=== PATIENT | female | born 1975 | race Caucasian/White ===

== ENCOUNTER 2019-05-07 08:51 | Emergency (ER) | payer SELFPAY ==
[~2019-05-07] VITALS: Ht 160 cm; Wt 46.6 kg
[2019-05-07 08:57] VITALS: BP 106/74
--- NOTE | 2019-05-07 09:55 | NUR ---
PT PROVIDED WITH WARM BLANKETS PER REQUEST. DENIES ANY FURTHER NEEDS OR CONCERNS AT THIS TIME. CALL LIGHT IN REACH.
--- NOTE | 2019-05-07 10:35 | NUR ---
Note jose in EDM - 05/07/19 at 1036 by [email or web address] UPON [facility] ARRIVAL PT WAS FOUND TO HAVE BP OF 60/40. GIVEN 700ML NS EN ROUTE, BP UP TO 82/57. STATES THAT SHE WAS WALKING HER DOG WHEN SHE SUDDENLY FELT DIZZY AND FAINT AND JUST "COULDN'T GO ANY MORE". CHANGED NTO GOWN, ATTACHED TO ALL MONITORS. PROVIDED WITH WARM BLANKETS. PT DENIES ANY FURTHER NEEDS OR CONCERNS AT THIS TIME, CALL LIGHT IN REACH, CHART UP FOR ERP REVIEW.
== END 2019-05-07 11:22 | disposition home or self-care (01) ==
LOC: ED 11:00
DX: M25.561 Pain in right knee (principal); I50.9 Heart failure, unspecified
CPT/HCPCS: 29505; 99283

== ENCOUNTER 2019-05-09 08:48 | Emergency (ER) | payer SELFPAY ==
[~2019-05-09] VITALS: Ht 160 cm; Wt 48.0 kg
[2019-05-09] MEDS ORDERED: ALBUTEROL/IPRATROPIUM 2.5MG/0.5MG, 3 ML ONE (09:24)
[2019-05-09] MEDS ORDERED: ALBUTEROL/IPRATROPIUM 2.5MG/0.5MG, 3 ML NEB ONE (09:30)
[2019-05-09 09:32] LABS: BASOPHILS # (AUTO) 0.01 x10^3/uL (0-0.1); BASOPHILS % (AUTO) 0 % (0-1); EOSINOPHILS # (AUTO) 0.07 x10^3/uL (0-0.4); EOSINOPHILS % (AUTO) 1 % (1-7); LYMPHOCYTES # (AUTO) 0.47 x10^3/uL (1-3.4); LYMPHOCYTES % (AUTO) 9 % (22-44); MD NO; MEAN CORPUSCULAR HEMOGLOBIN 29.9 pg (27.0-34.8); MEAN CORPUSCULAR HGB CONC 32.6 g/dL (32.4-35.8); MEAN CORPUSCULAR VOLUME 91.6 fL (80-100); MEAN PLATELET VOLUME 7.8 fL (7.4-10.4); MONOCYTES # (AUTO) 0.42 x10^3/uL (0.2-0.8); MONOCYTES % (AUTO) 8 % (2-9); NEUTROPHILS # (AUTO) 4.51 x10^3/uL (1.8-6.8); NEUTROPHILS % (AUTO) 82 % (42-75); PLATELET COUNT 198 x10^3/uL (130-400); RED BLOOD COUNT 3.89 x10^6/uL (3.82-5.3); RED CELL DISTRIBUTION WIDTH 14.8 % (9.6-15.2)
[2019-05-09 09:42] LABS: ALANINE AMINOTRANSFERASE 25 U/L (12-78); ALBUMIN 2.6 g/dL (3.4-5.0); ANION GAP 5 mmol/L (5-15); CALCIUM 7.7 mg/dL (8.5-10.1); CHLORIDE 111 mmol/L (98-107); CREATININE 0.53 mg/dL (0.55-1.02)
[2019-05-09 09:44] LABS: ALKALINE PHOSPHATASE 90 U/L (45-117); BILIRUBIN,TOTAL 0.4 mg/dL (0.2-1.0)
--- NOTE | 2019-05-09 09:53 | NUR ---
report from EFREN Barros, to assume care of pt.
[2019-05-09 09:57] VITALS: BP 101/62
--- NOTE | 2019-05-09 09:58 | NUR ---
PT RESTING IN ROOM WITH FAMILY AT BS. VSS. RT TX COMPLETE. NO NEEDS AT THIS TIME. PO MEDS TO BE ADMINISTERED BY TASK RN. ALL RESULTS BACK AT THIS TIME. CHART UP FOR RECHECK.
--- NOTE | 2019-05-09 10:28 | NUR ---
TECH TO BS TO COMPLETE AMB SPO2.
--- NOTE | 2019-05-09 10:34 | NUR ---
SPO2 DOWN TO 88% WITH AMBULATION. WILL NOTIFY EDMD.
[2019-05-16] MEDS ORDERED: ALBU18HF IH (00:48)
== END 2019-05-09 10:57 | disposition home or self-care (01) ==
LOC: ED 08:57
DX: J43.9 Emphysema, unspecified (principal); I50.9 Heart failure, unspecified; Z90.710 Acquired absence of both cervix and uterus; Z87.891 Personal history of nicotine dependence; Z88.2 Allergy status to sulfonamides; Z88.8 Allergy status to other drugs, medicaments and biological substances
CPT/HCPCS: 36415; 71046; 80053; 83880; 85025; 93005; 99284; J7512; J7620

== ENCOUNTER 2019-05-15 03:38 | Emergency (ER) | payer SELFPAY ==
[~2019-05-15] VITALS: Ht 160 cm; Wt 46.4 kg
[2019-05-15 03:48] VITALS: BP 130/82
[2019-05-15] MEDS ORDERED: ACETAMINOPHEN 500 MG TABLET ONE (04:10)
[2019-05-15] MEDS ORDERED: DEXAMETHASONE 4 MG TABLET ONE (04:10)
[2019-05-15] MEDS ORDERED: ACETAMINOPHEN 500 MG TABLET PO ONE (04:30)
[2019-05-15] MEDS ORDERED: DEXAMETHASONE 4 MG TABLET PO ONE (04:30)
[2019-05-15] MEDS ORDERED: SPIR100T4 PO (22:04)
[2019-05-15] MEDS ORDERED: SERVENT INH (22:04)
[2019-05-15] MEDS ORDERED: MONT10TA6 PO (22:04)
[2019-05-16] MEDS ORDERED: ALBU18HF IH (00:48)
== END 2019-05-15 05:42 | disposition home or self-care (01) ==
LOC: ED 05:30
DX: J04.0 Acute laryngitis (principal); J44.1 Chronic obstructive pulmonary disease with (acute) exacerbation; I50.9 Heart failure, unspecified; Z87.891 Personal history of nicotine dependence; Z90.710 Acquired absence of both cervix and uterus
CPT/HCPCS: 71045; 99283

== ENCOUNTER 2019-06-12 12:18 | Inpatient (IN) | payer MEDICARE ==
[~2019-06-12] VITALS: Ht 160 cm; Wt 41.4 kg
[~2019-06-12 12:18] MED LIST: ALBU18HF IH; MONT10TA6 PO; SERVENT INH; SPIR100T4 PO
[2019-06-12 20:00] VITALS: BP 103/71
[2019-06-12] MEDS ORDERED: FLUC100T4 JT (20:04)
[2019-06-12] MEDS ORDERED: BENZ2AMP4 JT (20:04)
[2019-06-12] MEDS ORDERED: DOCU-131 JT (20:04)
[2019-06-12] MEDS ORDERED: ASCO500T7 PO (20:04)
[2019-06-12] MEDS ORDERED: CHOL200078 JT (20:04)
[2019-06-12] MEDS ORDERED: ACET100V3 IH (20:04)
[2019-06-12] MEDS ORDERED: BUPR75TA6 PO (20:04)
[2019-06-12] MEDS ORDERED: CYAN500L4 JT (20:04)
[2019-06-12] MEDS ORDERED: MIRT15TA3 JT (20:04)
[2019-06-12] MEDS ORDERED: PRED5TAB JT (20:04)
[2019-06-12] MEDS ORDERED: CALC-112 PO (20:04)
[2019-06-12] MEDS ORDERED: ACET500T76 JT (20:04)
[2019-06-12] MEDS ORDERED: LANS30TA6 JT (20:04)
[2019-06-12] MEDS ORDERED: PLEASE ENTER HEIGHT AND WEIGHT MC SCH (20:30)
[2019-06-12] MEDS: ACETYLCYSTEINE 10%,30ML INH SCH (20:30)
[2019-06-12] MEDS ORDERED: BISACODYL 10 MG SUPP PR PRN (20:30)
[2019-06-12] MEDS ORDERED: DOCUSATE 100 MG CAPSULE JT PRN (20:30)
[2019-06-12] MEDS ORDERED: ACETAMINOPHEN 500 MG TABLET JT SCH (20:30)
[2019-06-12] MEDS ORDERED: CALCIUM/VITAMIN D3 250-125 TABLET PO SCH (21:00)
[2019-06-12] MEDS: AMPICILLIN/SULBACTAM 3 GM in SODIUM CHLORIDE 0.9% 100 ML IV SCH (21:33)
[2019-06-12] MEDS: ALBUTEROL/IPRATROPIUM 2.5MG/0.5MG, 3 ML NPPB SCH (22:30)
[2019-06-12] MEDS ORDERED: morphine SULFATE/PF 0.5 MG/ML, 10ML IV PRN (23:00)
[2019-06-12] MEDS ORDERED: morphine SULFATE 10 MG/ML, 1ML IVPush PRN (23:30)
[2019-06-12] MEDS ORDERED: OLAN10TA3 JT (23:42)
[2019-06-12] MEDS ORDERED: ASPI81TA45 JT (23:42)
[2019-06-12] MEDS: MIRTAZAPINE 15 MG TAB.RAPDIS JT SCH (23:44)
[2019-06-13] MEDS ORDERED: ALBU18HF INH (00:15)
[2019-06-13] MEDS ORDERED: SPIR100T4 PO (00:15)
[2019-06-13] MEDS ORDERED: MONT10TA6 PO (00:15)
[2019-06-13] MEDS ORDERED: AMPI3VIA30 IV (00:15)
[2019-06-13] MEDS ORDERED: ESTR1PAT25 TD (00:15)
[2019-06-13] MEDS ORDERED: FLUT1DIS5 IH (00:15)
[2019-06-13] MEDS ORDERED: SERT100T32 PO (00:15)
[2019-06-13] MEDS: ACETYLCYSTEINE 10%,30ML INH SCH (02:30)
[2019-06-13] MEDS: ALBUTEROL/IPRATROPIUM 2.5MG/0.5MG, 3 ML NPPB SCH ×4 (03:00→21:07)
[2019-06-13 03:07] VITALS: BP 87/62
[2019-06-13] MEDS: AMPICILLIN/SULBACTAM 3 GM in SODIUM CHLORIDE 0.9% 100 ML IV SCH ×4 (03:28→22:06)
[2019-06-13] MEDS: ACETAMINOPHEN 650 MG/20.3 ML UDC JT SCH ×3 (05:59→16:57)
[2019-06-13 06:19] LABS: BASOPHILS # (AUTO) 0.01 x10^3/uL (0-0.1); BASOPHILS % (AUTO) 0 % (0-1); EOSINOPHILS # (AUTO) 0.06 x10^3/uL (0-0.4); EOSINOPHILS % (AUTO) 1 % (1-7); LYMPHOCYTES % (AUTO) 26 % (22-44); MD NO; MEAN CORPUSCULAR HEMOGLOBIN 30.6 pg (27.0-34.8); MEAN CORPUSCULAR HGB CONC 32.8 g/dL (32.4-35.8); MEAN CORPUSCULAR VOLUME 93.4 fL (80-100); MEAN PLATELET VOLUME 6.3 fL (7.4-10.4); MONOCYTES # (AUTO) 0.28 x10^3/uL (0.2-0.8); MONOCYTES % (AUTO) 6 % (2-9); NEUTROPHILS # (AUTO) 2.98 x10^3/uL (1.8-6.8); NEUTROPHILS % (AUTO) 66 % (42-75); PLATELET COUNT 421 x10^3/uL (130-400); RED BLOOD COUNT 3.05 x10^6/uL (3.82-5.3); RED CELL DISTRIBUTION WIDTH 16.3 % (9.6-15.2)
[2019-06-13 06:26] LABS: ALANINE AMINOTRANSFERASE 23 U/L (12-78); ALBUMIN 2.5 g/dL (3.4-5.0); ANION GAP 4 mmol/L (5-15); CALCIUM 8.2 mg/dL (8.5-10.1); CHLORIDE 97 mmol/L (98-107); CREATININE 0.49 mg/dL (0.55-1.02)
[2019-06-13 06:28] LABS: ALKALINE PHOSPHATASE 115 U/L (45-117); BILIRUBIN,TOTAL 0.4 mg/dL (0.2-1.0); TOTAL PROTEIN 5.3 g/dL (6.4-8.2)
[2019-06-13 07:07] VITALS: BP 92/65
[2019-06-13] MEDS ORDERED: FLUCONAZOLE 10 MG/ML ORAL SUSP JT SCH (09:00)
[2019-06-13] MEDS ORDERED: BENZTROPINE 1 MG/ML, 2 ML HOMEINJ SCH (09:00)
[2019-06-13] MEDS ORDERED: TEMPLATE NON-FORMULARY MED. (Lansoprazole** (Prevacid**) 30 MG) JT SCH (09:00)
[2019-06-13] MEDS: CHOLECALCIFEROL 1,000 UNIT TABLET JT SCH (09:00)
[2019-06-13] MEDS: CALCIUM/VITAMIN D3 250-125 TABLET JT SCH ×2 (09:00→22:06)
[2019-06-13] MEDS ORDERED: ASCORBIC ACID 500 MG TABLET PO SCH (09:00)
[2019-06-13] MEDS ORDERED: BUPROPION 75 MG TABLET PO SCH (09:00)
[2019-06-13] MEDS: BUPROPION 75 MG TABLET JT SCH (09:00)
[2019-06-13] MEDS: PANTOPRAZOLE 40 MG IV IVPush SCH (09:11)
[2019-06-13] MEDS: ASCORBIC ACID 500 MG TABLET JT SCH (09:11)
[2019-06-13] MEDS: FLUCONAZOLE 40 MG/ML ORAL SUSP JT SCH (09:12)
[2019-06-13] MEDS: CYANOCOBALAMIN 1,000 MCG TABLET JT SCH (09:12)
[2019-06-13] MEDS: ACETYLCYSTEINE 10%,30ML NPPB SCH ×3 (10:15→21:07)
[2019-06-13 13:29] VITALS: BP 123/84
[2019-06-13] MEDS ORDERED: SODIUM CHLORIDE 0.9% 1,000 ML IV SCH ×2 (14:30→17:30)
[2019-06-13] MEDS: SODIUM CHLORIDE 0.9% 1,000 ML IV SCH (17:34)
[2019-06-13 19:26] VITALS: BP 119/81
[2019-06-13] MEDS: OLANZAPINE 5 MG TABLET JT SCH (22:06)
[2019-06-13] MEDS: MIRTAZAPINE 15 MG TAB.RAPDIS JT SCH (22:06)
[2019-06-14] MEDS: ACETAMINOPHEN 650 MG/20.3 ML UDC JT SCH ×3 (00:10→12:10)
[2019-06-14] MEDS: ACETYLCYSTEINE 10%,30ML NPPB SCH ×4 (03:00→21:00)
[2019-06-14] MEDS: ALBUTEROL/IPRATROPIUM 2.5MG/0.5MG, 3 ML NPPB SCH ×4 (03:00→21:31)
[2019-06-14] MEDS: AMPICILLIN/SULBACTAM 3 GM in SODIUM CHLORIDE 0.9% 100 ML IV SCH ×4 (03:35→21:47)
[2019-06-14 03:39] VITALS: BP 97/66
[2019-06-14] MEDS: LORazepam 0.5MG TABLET JT PRN ×2 (05:02→17:53)
[2019-06-14 05:57] LABS: BASOPHILS # (AUTO) 0.02 x10^3/uL (0-0.1); BASOPHILS % (AUTO) 0 % (0-1); EOSINOPHILS # (AUTO) 0.08 x10^3/uL (0-0.4); EOSINOPHILS % (AUTO) 2 % (1-7); LYMPHOCYTES # (AUTO) 0.99 x10^3/uL (1-3.4); LYMPHOCYTES % (AUTO) 22 % (22-44); MD NO; MEAN CORPUSCULAR HEMOGLOBIN 30.9 pg (27.0-34.8); MEAN CORPUSCULAR HGB CONC 33.4 g/dL (32.4-35.8); MEAN CORPUSCULAR VOLUME 92.4 fL (80-100); MEAN PLATELET VOLUME 6.8 fL (7.4-10.4); MONOCYTES # (AUTO) 0.35 x10^3/uL (0.2-0.8); MONOCYTES % (AUTO) 8 % (2-9); NEUTROPHILS # (AUTO) 3.17 x10^3/uL (1.8-6.8); NEUTROPHILS % (AUTO) 69 % (42-75); PLATELET COUNT 396 x10^3/uL (130-400); RED CELL DISTRIBUTION WIDTH 16.2 % (9.6-15.2)
[2019-06-14 06:01] LABS: CHLORIDE 103 mmol/L (98-107)
[2019-06-14 06:07] LABS: ALANINE AMINOTRANSFERASE 24 U/L (12-78); ALBUMIN 2.5 g/dL (3.4-5.0); ALKALINE PHOSPHATASE 128 U/L (45-117); ANION GAP 5 mmol/L (5-15); BILIRUBIN,TOTAL 0.3 mg/dL (0.2-1.0); C-REACTIVE PROTEIN, QUANT 0.84 mg/dL (0.02-0.49); CALCIUM 7.8 mg/dL (8.5-10.1); CREATININE 0.51 mg/dL (0.55-1.02); TOTAL PROTEIN 5.4 g/dL (6.4-8.2)
[2019-06-14 06:58] VITALS: BP 118/79
[2019-06-14 07:20] LABS: HCT (SEDRATE) 28.7 % (34.6-47.8)
[2019-06-14] MEDS: BENZTROPINE 1 MG TABLET PO SCH ×2 (09:00→09:09)
[2019-06-14] MEDS: PANTOPRAZOLE 40 MG IV IVPush SCH (09:08)
[2019-06-14] MEDS: FLUCONAZOLE 40 MG/ML ORAL SUSP JT SCH (09:08)
[2019-06-14] MEDS: CHOLECALCIFEROL 1,000 UNIT TABLET JT SCH (09:09)
[2019-06-14] MEDS: BUPROPION 75 MG TABLET JT SCH (09:09)
[2019-06-14] MEDS: BENZTROPINE 1 MG TABLET JT SCH (09:09)
[2019-06-14] MEDS: CYANOCOBALAMIN 1,000 MCG TABLET JT SCH (09:10)
[2019-06-14] MEDS: CALCIUM/VITAMIN D3 250-125 TABLET JT SCH ×2 (09:10→20:14)
[2019-06-14] MEDS: ASCORBIC ACID 500 MG TABLET JT SCH (09:10)
--- NOTE | 2019-06-14 10:45 | NUR ---
TF GOAL: OSMOLITE 1.2 @ 55ML/HR
[2019-06-14] MEDS ORDERED: ACETAMINOPHEN 500 MG TABLET ONE (12:05)
[2019-06-14] MEDS: ACETAMINOPHEN 500 MG TABLET JT SCH ×2 (12:25→17:52)
[2019-06-14] MEDS: SODIUM CHLORIDE 0.9% 1,000 ML IV SCH (12:44)
[2019-06-14 13:26] VITALS: BP 121/82
[2019-06-14 15:07] VITALS: BP 121/80
[2019-06-14 19:27] VITALS: BP 113/70
[2019-06-14] MEDS: MIRTAZAPINE 15 MG TAB.RAPDIS JT SCH (20:13)
[2019-06-14] MEDS: OLANZAPINE 5 MG TABLET JT SCH (20:14)
[2019-06-15] MEDS: ACETAMINOPHEN 500 MG TABLET JT SCH ×5 (00:30→22:38)
[2019-06-15 00:49] VITALS: BP 116/74
[2019-06-15] MEDS: ACETYLCYSTEINE 10%,30ML NPPB SCH ×4 (02:19→21:00)
[2019-06-15] MEDS: ALBUTEROL/IPRATROPIUM 2.5MG/0.5MG, 3 ML NPPB SCH ×4 (02:19→21:00)
[2019-06-15] MEDS: AMPICILLIN/SULBACTAM 3 GM in SODIUM CHLORIDE 0.9% 100 ML IV SCH ×4 (03:55→22:37)
[2019-06-15] MEDS: LORazepam 0.5MG TABLET JT PRN (06:06)
[2019-06-15 06:11] VITALS: BP 96/66
[2019-06-15] MEDS: CYANOCOBALAMIN 1,000 MCG TABLET JT SCH (09:00)
[2019-06-15] MEDS: PANTOPRAZOLE 40 MG IV IVPush SCH (10:19)
[2019-06-15] MEDS: FLUCONAZOLE 40 MG/ML ORAL SUSP JT SCH (10:19)
[2019-06-15] MEDS: CHOLECALCIFEROL 1,000 UNIT TABLET JT SCH (10:20)
[2019-06-15] MEDS: ASCORBIC ACID 500 MG TABLET JT SCH (10:20)
[2019-06-15] MEDS: BENZTROPINE 1 MG TABLET JT SCH (10:21)
[2019-06-15] MEDS: CALCIUM/VITAMIN D3 250-125 TABLET JT SCH ×2 (10:23→22:38)
[2019-06-15] MEDS: BUPROPION 75 MG TABLET JT SCH (10:24)
[2019-06-15] MEDS: ONDANSETRON 2MG/ML, 2ML IVPush PRN ×2 (12:56→23:00)
[2019-06-15 13:19] VITALS: BP 119/85
[2019-06-15] MEDS: SODIUM CHLORIDE 0.9% 1,000 ML IV SCH (16:00)
[2019-06-15 18:23] VITALS: BP 113/77
[2019-06-15] MEDS: OLANZAPINE 5 MG TABLET JT SCH (22:38)
[2019-06-16 00:59] VITALS: BP 109/75
[2019-06-16] MEDS: ALBUTEROL/IPRATROPIUM 2.5MG/0.5MG, 3 ML NPPB SCH ×4 (03:00→19:53)
[2019-06-16] MEDS: AMPICILLIN/SULBACTAM 3 GM in SODIUM CHLORIDE 0.9% 100 ML IV SCH ×4 (04:26→21:30)
[2019-06-16] MEDS: ACETAMINOPHEN 500 MG TABLET JT SCH ×4 (04:26→21:31)
[2019-06-16 07:01] VITALS: BP 110/75
[2019-06-16] MEDS ORDERED: POTASSIUM CHLORIDE 20 MEQ PACKET PO ONE (08:30)
[2019-06-16] MEDS: CYANOCOBALAMIN 1,000 MCG TABLET JT SCH (09:00)
[2019-06-16] MEDS: FLUCONAZOLE 40 MG/ML ORAL SUSP JT SCH (09:00)
[2019-06-16] MEDS: FUROSEMIDE 10 MG/ML ORAL SOL PO SCH (09:00)
[2019-06-16] MEDS ORDERED: FUROSEMIDE 20 MG TABLET ONE (09:51)
[2019-06-16] MEDS ORDERED: FLUCONAZOLE 200 MG TABLET ONE (09:59)
[2019-06-16] MEDS: PANTOPRAZOLE 40 MG IV IVPush SCH (10:22)
[2019-06-16] MEDS: CHOLECALCIFEROL 1,000 UNIT TABLET JT SCH (10:23)
[2019-06-16] MEDS: BENZTROPINE 1 MG TABLET JT SCH (10:24)
[2019-06-16] MEDS: OLANZAPINE 5 MG TABLET JT SCH ×2 (10:25→21:30)
[2019-06-16] MEDS: CALCIUM/VITAMIN D3 250-125 TABLET JT SCH ×2 (10:26→21:31)
[2019-06-16] MEDS: ASCORBIC ACID 500 MG TABLET JT SCH (10:27)
[2019-06-16 12:49] VITALS: BP 114/81
[2019-06-16 21:10] VITALS: BP 102/68
[2019-06-17 00:57] VITALS: BP 96/67
[2019-06-17] MEDS: ALBUTEROL/IPRATROPIUM 2.5MG/0.5MG, 3 ML NPPB SCH ×3 (03:00→15:00)
[2019-06-17] MEDS: ACETAMINOPHEN 500 MG TABLET JT SCH ×4 (03:56→20:25)
[2019-06-17] MEDS: AMPICILLIN/SULBACTAM 3 GM in SODIUM CHLORIDE 0.9% 100 ML IV SCH ×3 (03:57→16:13)
[2019-06-17 06:10] LABS: BASOPHILS # (AUTO) 0.02 x10^3/uL (0-0.1); BASOPHILS % (AUTO) 0 % (0-1); EOSINOPHILS # (AUTO) 0.05 x10^3/uL (0-0.4); EOSINOPHILS % (AUTO) 1 % (1-7); LYMPHOCYTES # (AUTO) 1.13 x10^3/uL (1-3.4); LYMPHOCYTES % (AUTO) 23 % (22-44); MD NO; MEAN CORPUSCULAR HEMOGLOBIN 30.5 pg (27.0-34.8); MEAN CORPUSCULAR HGB CONC 32.8 g/dL (32.4-35.8); MEAN PLATELET VOLUME 6.8 fL (7.4-10.4); MONOCYTES # (AUTO) 0.45 x10^3/uL (0.2-0.8); MONOCYTES % (AUTO) 9 % (2-9); NEUTROPHILS # (AUTO) 3.24 x10^3/uL (1.8-6.8); NEUTROPHILS % (AUTO) 67 % (42-75); PLATELET COUNT 365 x10^3/uL (130-400); RED BLOOD COUNT 3.21 x10^6/uL (3.82-5.3); RED CELL DISTRIBUTION WIDTH 16.1 % (9.6-15.2)
[2019-06-17 06:21] LABS: ANION GAP 4 mmol/L (5-15); CALCIUM 8.2 mg/dL (8.5-10.1); CHLORIDE 105 mmol/L (98-107)
[2019-06-17 06:22] LABS: CREATININE 0.48 mg/dL (0.55-1.02)
[2019-06-17 08:49] VITALS: BP 92/64
[2019-06-17] MEDS: PANTOPRAZOLE 40 MG IV IVPush SCH (08:55)
[2019-06-17] MEDS: FLUCONAZOLE 40 MG/ML ORAL SUSP JT SCH (08:56)
[2019-06-17] MEDS: CYANOCOBALAMIN 1,000 MCG TABLET JT SCH (08:57)
[2019-06-17] MEDS: ASCORBIC ACID 500 MG TABLET JT SCH (08:58)
[2019-06-17] MEDS: OLANZAPINE 5 MG TABLET JT SCH ×2 (08:58→20:25)
[2019-06-17] MEDS: CHOLECALCIFEROL 1,000 UNIT TABLET JT SCH (08:58)
[2019-06-17] MEDS: FUROSEMIDE 10 MG/ML ORAL SOL PO SCH (08:59)
[2019-06-17] MEDS: BENZTROPINE 1 MG TABLET JT SCH (09:00)
[2019-06-17] MEDS: CALCIUM/VITAMIN D3 250-125 TABLET JT SCH ×2 (09:06→20:25)
[2019-06-17] MEDS ORDERED: ALUMINUM/MAG/SIMETHICONE 30 ML UDC PO PRN (12:00)
[2019-06-17 12:08] VITALS: BP 97/68
[2019-06-17] MEDS ORDERED: MONT10TA9 JT (13:48)
[2019-06-17] MEDS ORDERED: OLAN5TAB9 JT (13:48)
[2019-06-17] MEDS ORDERED: LORA-445 JT (13:48)
[2019-06-17] MEDS ORDERED: BENZ1TAB61 JT (13:48)
[2019-06-17] MEDS ORDERED: PANT40VI IVPush (13:48)
[2019-06-17] MEDS ORDERED: CYAN-27 JT (13:48)
[2019-06-17] MEDS ORDERED: PRED5TAB JT (13:48)
[2019-06-17] MEDS ORDERED: TRAM50TA2 JT (13:48)
[2019-06-17] MEDS ORDERED: ASCO500T6 JT (13:48)
[2019-06-17] MEDS ORDERED: CALC1TAB68 JT (13:48)
[2019-06-17] MEDS: ONDANSETRON 2MG/ML, 2ML IVPush PRN (15:47)
[2019-06-17 19:50] VITALS: BP 102/70
[2019-06-17] MEDS ORDERED: MONTELUKAST 10 MG TABLET JT SCH (21:00)
== END 2019-06-17 21:00 | DRG 177 ==
LOC: 4NE 19:24 → 4WST 06-14 14:48
PROVIDERS: ADMIT Internal Medicine Infectious Disease; ATTEND Internal Medicine
DX: J86.0 Pyothorax with fistula (principal); E43 Unspecified severe protein-calorie malnutrition; E87.1 Hypo-osmolality and hyponatremia; R45.851 Suicidal ideations; Z68.1 Body mass index [BMI] 19.9 or less, adult; K80.20 Calculus of gallbladder without cholecystitis without obstruction; F25.0 Schizoaffective disorder, bipolar type; D63.8 Anemia in other chronic diseases classified elsewhere; E11.9 Type 2 diabetes mellitus without complications; E83.39 Other disorders of phosphorus metabolism; F41.9 Anxiety disorder, unspecified; K21.9 Gastro-esophageal reflux disease without esophagitis; R13.10 Dysphagia, unspecified; Z59.0 Homelessness; I50.9 Heart failure, unspecified; Z72.0 Tobacco use; Z93.0 Tracheostomy status; Z79.52 Long term (current) use of systemic steroids; Z79.899 Other long term (current) drug therapy; Z80.49 Family history of malignant neoplasm of other genital organs; Z82.49 Family history of ischemic heart disease and other diseases of the circulatory system; Z82.5 Family history of asthma and other chronic lower respiratory diseases; Z87.11 Personal history of peptic ulcer disease; Z98.82 Breast implant status; Z98.1 Arthrodesis status; Z98.84 Bariatric surgery status; Z90.710 Acquired absence of both cervix and uterus; Z88.2 Allergy status to sulfonamides; Z88.8 Allergy status to other drugs, medicaments and biological substances; Z91.013 Allergy to seafood; J44.9 Chronic obstructive pulmonary disease, unspecified
CPT/HCPCS: 36415; 36600; 71045; 80048; 80053; 82803; 83735; 84100; 85025; 85651; 86140; 94640; G0378; J0295; J2405; J7608; J7620; C9113; J2270; J7030; J7512